=== PATIENT | female | born 1975 | race Caucasian/White ===

== ENCOUNTER 2016-06-27 05:53 | Day surgery (SDC) | payer BC ==
--- NOTE | 2016-06-25 04:45 | PREOPHP ---
DATE OF ADMISSION: 06/27/2016 HISTORY OF PRESENT ILLNESS: This is a 40-year-old female, 3, para 1 with 2 abortions. This patient had a vaginal delivery 10 years ago, and she is complaining of pelvic pain. She was diagno sed with hydrosalpinx by a hystersalpingogram, and she was also diagnosed with endometriosis. This patient has requested an alleviation of her pain. A pelviscopy will be done with the possibility of lysis of adhesions and possibility of bilateral salpingectomy. The patient's tubes were already di agnosed to be blocked, but because of her pelvic pain, we offered her pelviscopy, possible bilateral salpingectomy. She also had history of genital warts, HPV, negative ASCUS, and colposcopy that was done in December. The patient has been having regular periods without problems. She had an ectop ic with a unilateral partial salpingectomy, recent ultrasound did not show the one ovary, history of very early breast cancer, eye surgery, and appendectomy. ALLERGIES: SHE IS ALLERGIC TO IODINE IV. MEDICATIONS: She is not taking any medication except for allergy. FAMILY HISTORY: Hypertension and breast cancer. REVIEW OF SYSTEMS: Noncontributory. PHYSICAL EXAMINATION: GENERAL APPEARANCE: Good. VITAL SIGNS: Stable with a blood pressure of 90/60, pulse is 80, respirations 16. She weighs 104, and she is 5 feet. HEAD AND NECK: Normal. BREASTS: With fibrocystic breast. HEART: Normal sinus rhythm. BACK: Normal. ABDOMEN: Soft, nontender, no masses. GENITALIA: Normal external genitalia. Cervix is healthy. Uterus is small, retroverted painful mob ilization. RECTAL: Normal. EXTREMITIES: Normal. DIAGNOSES: Pelvic pain, chronic, hydrosalpinx, possible endometriosis. PLAN: She is undergoing a pelviscopic bilateral salpingectomy, lysis of adhesions. She has been ad vised of the possible risks and possible complications of the procedure with her alternatives and op tions. Written information was provided. She had no more questions and agreed to go ahead with the procedure with full understanding and no more questions. Dictated By: KAREN MERRILL/NTS Conf#: [id number] DID#: [id number]
[2016-06-26 10:38] VITALS: Ht 152.4 cm; Wt 48.7 kg
[~2016-06-27] VITALS: Ht 152.4 cm; Wt 48.7 kg
[2016-06-27] VITALS (14 sets, daily range): BP systolic 95–117; BP diastolic 50–72; PULSE 54–81; RESP 12–18
[~2016-06-27 05:53] MED LIST: CEFAZOLIN 2 GM/50 ML (PMX) 50 ML IVPB ONE
[2016-06-27] MEDS ORDERED: PROPOFOL 20 ML ONE (07:43)
[2016-06-27] MEDS ORDERED: SUCCINYLCHOLINE CHLORIDE 100 MG/5 ML SYG IV ONE (07:43)
[2016-06-27] MEDS ORDERED: ROCURONIUM 50 MG INJ ONE (07:43)
[2016-06-27] MEDS ORDERED: NEOSTIGMINE 3 MG/3 ML SYRINGE ONE (07:43)
[2016-06-27] MEDS ORDERED: LIDOCAINE 2% (SDV) 5 ML INJ ONE (07:43)
[2016-06-27] MEDS ORDERED: GLYCOPYRROLATE 0.4 MG INJ ONE ×2 (07:43→09:08)
[2016-06-27] MEDS ORDERED: MEPERIDINE 100 MG INJ ONE (07:43)
[2016-06-27] MEDS ORDERED: ONDANSETRON 4 MG INJ ONE (07:46)
[2016-06-27] MEDS ORDERED: CEFAZOLIN 1 GM INJ ONE (07:46)
[2016-06-27] MEDS ORDERED: METOCLOPRAMIDE 10 MG INJ ONE (07:46)
[2016-06-27] MEDS ORDERED: BUPIVACAINE 0.5%/EPI (SDV) 30 ML INJ ONE (08:19)
--- NOTE | 2016-06-27 08:27 | HPN ---
Date/Time of Note Date/Time of Note DATE: 06/27/16 TIME: 08:27 Interval H&P Admission Note Pt. seen H&P reviewed: No system changes KAREN KO MD Jun 27, 2016 08:27
[2016-06-27] MEDS ORDERED: METHYLENE BLUE 10 MG/ML VIAL ONE (09:23)
--- NOTE | 2016-06-27 10:16 | PD.PPDC ---
SEWER DIGGER Discharge Instruction Condition Patient Condition: Good Diet Diet: Resume Regular Diet Activity/Restrictions Activity: Normal Activity May Shower Restrictions: No Exercising No Lifting No Driving No Sexual Activity Nothing in the Vagina No Buckman No Tampons, douche Wound/Drain Care Instructions Wound/Drain Care Instructions: Remove Steri Strips in 1 week Wash with soap and water Keep clean and dry Follow-up Follow-up with Physician: 2, Week/Weeks Return to clinic for [facility] ADMINISTRATOR Instructions: Fever greater than 101 Chills Worsening abdominal pain Excessive Vaginal Bleeding More than 2 pads per hour Unable to tolerate diet Surgical Instructions: Incisional Drainage Incisional Redness KAREN KO MD Jun 27, 2016 10:16
--- NOTE | 2016-06-27 10:22 | OPR ---
Date/Time of Note Date/Time of Note DATE: 06/27/16 TIME: 10:18 Operative Report Preoperative Diagnosis Chronic Pelvic pain Bilateral hydrosalpinx Previous partial salpingectomy History of PID Postoperative Diagnosis SAME Operation Performed PELVISCOPIC LEFT SALPINGECTOMY AND RIGHT PARTIAL SALPINGECTOMY Surgeon: KAREN KO MD Anesthesia: general Anesthesiologist: ALONDRA FRY MD Estimated Blood Loss: none Specimens LEFT TUBE AND RIGHT PARTIAL TUBE Complications: None Pt Condition Post Procedure: stable Disposition: PACU KAREN KO MD Jun 27, 2016 10:21
[2016-06-27] MEDS ORDERED: KETOROLAC 30 MG INJ IV PRN (10:30)
[2016-06-27] MEDS ORDERED: morphine (1 MG/ML) 10ML SYRINGE IV PRN ×2 (11:00)
[2016-06-27] MEDS ORDERED: MEPERIDINE 25 MG INJ IV PRN (11:00)
[2016-06-27] MEDS ORDERED: METOCLOPRAMIDE 10 MG INJ IV PRN (11:00)
[2016-06-27] MEDS ORDERED: MIDAZOLAM 1 MG/ML 2 ML INJ IV PRN (11:00)
[2016-06-27] MEDS ORDERED: FENTAnyl 50 MCG/ML VIAL IV PRN ×2 (11:00)
[2016-06-27] MEDS ORDERED: HYDROmorphONE (0.2 MG/ML) 10ML SYG IV PRN ×2 (11:00)
[2016-06-27] MEDS ORDERED: EPHEDrine SULFATE 50 MG/5 ML SYG IV PRN (11:00)
[2016-06-27] MEDS ORDERED: hydrALAzine 20 MG INJ IV PRN (11:00)
[2016-06-27] MEDS ORDERED: LABETALOL HCL 20MG INJ IV PRN (11:00)
[2016-06-27] MEDS ORDERED: ONDANSETRON 4 MG INJ IV PRN (11:00)
--- NOTE | 2016-06-27 11:29 | OPR ---
DATE OF OPERATION: 06/27/2016 PREOPERATIVE DIAGNOSES: 1. Chronic pelvic pain. 2. Bilateral hydrosalpinx. 3. Previous partial salpingectomy. 4. Right-sided ectopic . 5. History of pelvic inflammatory disease and endometriosis. POSTOPERATIVE DIAGNOSES: 1. Chronic pelvic pain. 2. Bilateral hydrosalpinx. 3. Previous partial salpingectomy. 4. Right-sided ectopic . 5. History of pelvic inflammatory disease and endometriosis. SURGEON: Karen Vyas MD ANESTHESIOLOGIST: Dr. Gee with general anesthesia. PROCEDURE: Pelviscopic left salpingectomy and right partial salpingectomy. COMPLICATIONS: None. DESCRIPTION OF PROCEDURE: Patient was given general anesthesia, placed in the lithotomy position. The abdomen, perineal and vaginal area were prepped and draped and a HUMI was inserted inside the ut erus for uterine manipulation. A small incision was made over the inferior edge of the umbilicus of about 2 cm. The fascia was incised and 2 stitches with 0 Vicryl were placed on either side of the fascia, the peritoneum was entered bluntly and the Melinda was inserted. The CO2 was inflated. A se cond trocar and cannula with a 5 mm trocar was placed suprapubically over the midline. Visualizatio n of the pelvic organs revealed that the uterus was normal. The right tube was partially absent wit h a long piece at the isthmic para part of the right tube. The left hip apparently had been adheren t to the side of the pelvis with a hydrosalpinx distally. There were some signs of pelvic infection at the liver area. There were abundant adhesions from previous PID. The third trocar and cannula was placed laterally 5 cm below the umbilical area very lateral to the rectus muscle with a 5 mm tr ocar and the left tube was adhesed from the adhesion on the wall of the side of the wall of the pelv is and the gyrus was used to separate the piece of tube from the left lateral wall of the pelvis and then the mesosalpinx was fulgurated and incised all the way up to the isthmic portion and to the en trance of the tube in the uterus. The cornual end of the uterus was burned very well with the bipol ar instrument and the whole tube was removed with the help of a 5 mm scope that was placed laterally . The right tube piece of tube was also removed with the gyrus and the procedure was finished by re moving all the instruments, the gas inflated of the abdomen and the abdomen had been checked under w ater for bleeders which were absolutely controlled. The patient tolerated the procedure well. All the incisions were closed with 3-0 Monocryl and 0 Vicryl on the umbilical area. The Marcaine soluti on was used in all 3 incisions for pain control and Dermabond. The patient tolerated the procedure well and left the OR awake and stable. Sponge counts, instrument counts were correct. Intravenous antibiotics were given for prophylaxis. Dictated By: KAREN MERRILL/NTS Conf#: [id number] DID#: [id number]
== END 2016-06-27 13:05 | disposition home or self-care (01) ==
LOC: SDS 05:53
PROVIDERS: ATTEND Obstetrics & Gynecology
DX: N70.11 Chronic salpingitis (principal)
CPT/HCPCS: 58661; 88302; 88304; J0330; J0690; J1170; J1885; J2175; J2405; J2710; J2765; Z7512; Z7610